=== PATIENT | female | born 1950 | race Two or more races ===

== ENCOUNTER 2017-11-07 16:23 | Emergency (ER) | payer MEDICAID ==
[~2017-11-07] VITALS: Ht 160 cm; Wt 80.0 kg
[~2017-11-07 16:23] MED LIST: AMLO2.5T2 PO; ASPI-1264 PO; DULO20CA50 PO; HYDR25TA4 PO; LISI40TA4 PO; METF500T PO; ONDA8TAB9 PO
[2017-11-07 16:28] VITALS: BP 153/75
== END 2017-11-07 18:47 | disposition home or self-care (01) ==
LOC: ER 16:23
DX: Z47.89 Encounter for other orthopedic aftercare (principal); I10 Essential (primary) hypertension; E11.9 Type 2 diabetes mellitus without complications; Z98.890 Other specified postprocedural states; Z88.8 Allergy status to other drugs, medicaments and biological substances; Z79.899 Other long term (current) drug therapy
CPT/HCPCS: 29515; 99283; A6449

== ENCOUNTER 2024-09-15 08:10 | Inpatient (IN) | payer MEDICARE, MEDICAID ==
[~2024-09-15] VITALS: Ht 157.5 cm; Wt 93.4 kg
[2024-09-15] VITALS (13 sets, daily range): BP systolic 92–141; BP diastolic 44–73; PULSE 54–80; RESP 12–20; TEMP 96.9–98.2; O2SAT 95–98
[~2024-09-15 08:10] MED LIST changes: +LISI40TA13 PO; -LISI40TA4 PO
[2024-09-15 08:59] LABS: BASOPHILS # (AUTO) 0.1 X10'3 (0-0.2); BASOPHILS % (AUTO) 0.4 % (0-1); EOSINOPHILS % (AUTO) 0.2 % (0-6); HEMOGLOBIN 10.3 g/dl (12.0-16.0); LYMPHOCYTES # (AUTO) 0.9 X10'3 (1.1-4.8); LYMPHOCYTES % (AUTO) 7.2 % (21-51); MEAN CORPUSCULAR HEMOGLOBIN 32.1 PG (27.0-31.0); MEAN CORPUSCULAR HGB CONC 33.2 g/dL (33.0-36.5); MEAN CORPUSCULAR VOLUME 96.7 FL (78-98); MEAN PLATELET VOLUME 7.7 FL (7.4-10.4); MONOCYTES # (AUTO) 1.1 X10'3 (0-0.9); NEUTROPHILS # (AUTO) 10.3 X10'3 (1.8-7.7); NEUTROPHILS % (AUTO) 83.2 % (42-75); PLATELET COUNT 220 X10'3 (140-440); RED CELL DISTRIBUTION WIDTH 14.8 % (11.5-14.5); WHITE BLOOD COUNT 12.4 X10'3 (4.5-11.0)
[2024-09-15] MEDS: NORepinephrine 8mg/ 250ml NS 250 ML IV SCH (09:02)
[2024-09-15 09:18] LABS: APTT 32 SECONDS (22-32); INR 1.1 INR; PROTHROMBIN TIME 11.4 SECONDS (9.0-12.0)
[2024-09-15 09:19] LABS: ALANINE AMINOTRANSFERASE 32 U/L (12-78); ALBUMIN/GLOBULIN RATIO 0.9 (1.1-1.5); ALKALINE PHOSPHATASE 154 IU/L (46-116); ANION GAP 12 (8-16); ASPARTATE AMINO TRANSFERASE 29 U/L (10-37); BILIRUBIN,TOTAL 0.4 MG/DL (0.1-1.0); BLOOD UREA NITROGEN 64 MG/DL (7-18); BUN/CREATININE RATIO 12.8 (10.0-20.0); CALCIUM 8.2 MG/DL (8.5-10.1); CHLORIDE 96 MMOL/L (99-107); GLUCOSE 177 MG/DL (70-104); MAGNESIUM 2.1 MG/DL (1.5-2.4); POTASSIUM 5.7 MMOL/L (3.5-5.1); SODIUM 129 MMOL/L (135-145); TOTAL CARBON DIOXIDE 20.7 MMOL/L (24-32); TOTAL PROTEIN 6.5 G/DL (6.4-8.2); eCRCL 8 ML/MIN; eGFR 9 ML/MIN
[2024-09-15] MEDS: HYDROmorphone 1 mg/ml syringe IV ONE (09:53)
[2024-09-15] MEDS: sodium bicarbonate (8.4%) 1 mEq/ml syringe IV ONE (10:15)
[2024-09-15] MEDS: dextrose 50%-water 50ml dispensing syringe IV ONE (10:15)
[2024-09-15] MEDS: insulin regular, human 10 units/0.1 ml syringe IV ONE (10:19)
[2024-09-15] MEDS ORDERED: ondansetron/PF 4mg/2ml inj IV PRN (10:30)
[2024-09-15] MEDS ORDERED: potassium Cl 40MEQ/1/2NS 520ml 520 ML IV PRN (10:30)
[2024-09-15] MEDS ORDERED: mag hydrox/Alum hydrox/simeth 30ml oral suspension PO PRN (10:30)
[2024-09-15] MEDS ORDERED: magnesium hydroxide 30ml (MOM) UD suspension PO PRN (10:30)
[2024-09-15] MEDS ORDERED: magnesium sulf-water 2g/50mL 50 ML IV PRN (10:30)
[2024-09-15] MEDS ORDERED: magnesium Cl slow-release 64mg tablet PO PRN (10:30)
[2024-09-15] MEDS ORDERED: potassium Cl 20 mEq SR tablet PO PRN ×2 (10:30)
[2024-09-15] MEDS ORDERED: acetaminophen 325mg tablet PO PRN ×2 (10:30)
[2024-09-15] MEDS ORDERED: magnesium sulf-water 4G/100mL 100 ML IV PRN (10:30)
[2024-09-15] MEDS ORDERED: DILT180C66 PO (11:08)
[2024-09-15] MEDS ORDERED: HYDR-3965 PO (11:08)
[2024-09-15] MEDS ORDERED: GABA-530 PO ×2 (11:08)
[2024-09-15] MEDS ORDERED: FOLI0.4T6 PO (11:08)
[2024-09-15] MEDS ORDERED: THIA50TA10 PO (11:08)
[2024-09-15] MEDS ORDERED: DOCU-348 PO (11:08)
[2024-09-15] MEDS ORDERED: CARV-50 PO (11:08)
[2024-09-15] MEDS ORDERED: CYCL-394 PO (11:08)
[2024-09-15] MEDS ORDERED: APIX2.5T PO (11:08)
[2024-09-15] MEDS ORDERED: ASCO-482 PO (11:08)
[2024-09-15] MEDS ORDERED: DOXA1TAB2 PO (11:08)
[2024-09-15] MEDS ORDERED: ATOR20TA PO (11:08)
[2024-09-15] MEDS ORDERED: FURO-150 PO (11:31)
[2024-09-15] MEDS: albumin (human) 25% 100ml IV 100 ML IV PRN (14:09)
[2024-09-15] MEDS: EPOETIN ALFA-EPBX 20,000 UNIT/ML 1 ML MDV IV ONE (14:42)
[2024-09-15] MEDS: heparin 1,000 units/ml 10ml inj IV ONE (14:46)
[2024-09-15] MEDS: heparin 1,000unit/ml 10ml vial 10 ML IV ONE (14:47)
[2024-09-15] MEDS: NUT.TX.IMP.RENAL FXN,LAC-REDUC (Nepro) 237 ML VANILLA PO SCH (18:35)
[2024-09-15] MEDS: docusate sod 100mg capsule PO SCH ×2 (20:00→21:00)
[2024-09-15] MEDS: K and/or MAG REPLACEMENT MC SCH (20:00)
[2024-09-15] MEDS: heparin, porcine 5000 units/ml vial SQ SCH (20:03)
[2024-09-15] MEDS ORDERED: dextrose 50%-water 50ml dispensing syringe IV PRN ×2 (20:20)
[2024-09-15] MEDS ORDERED: glucagon, human recombinant 1mg kit SUBCUT PRN (20:20)
[2024-09-15] MEDS ORDERED: DEXTROSE 15 GM of carb/4 tabs (each vial/BOTTLE has 4 tablets) PO PRN ×2 (20:20)
[2024-09-15] MEDS ORDERED: cyclobenzaprine 10mg tablet PO PRN (20:30)
[2024-09-15] MEDS: INSULIN LISPRO 100 UNIT/ML INSULN.PEN MULTI-DOSE SQ SCH (21:00)
[2024-09-15] MEDS: insulin glargine (Lantus) pen - multi-dose SQ SCH (21:00)
[2024-09-15] MEDS ORDERED: insulin glargine (Lantus) pen - multi-dose SQ SCH (21:00)
[2024-09-15] MEDS: HYDROcodone/acetaminophen 5mg/325mg tablet PO PRN (21:11)
[2024-09-15] MEDS: atorvastatin 20mg tablet PO SCH (23:24)
[2024-09-16] VITALS (8 sets, daily range): BP systolic 122–163; BP diastolic 40–67; PULSE 69–79; RESP 15–20; TEMP 97.4–98.4; O2SAT 96–99
[2024-09-16 01:30] LABS: BILIRUBIN,URINE NEGATIVE (Neg); CLARITY,URINE CLEAR (Clear); COLOR,URINE YELLOW (Yellow); GLUCOSE, URINE 100 mg/dl (Neg); KETONES,URINE NEGATIVE (Neg); LEUKOCYTE ESTERASE ,URINE NEGATIVE (Neg); NITRITES, URINE NEGATIVE (Neg); OCCULT BLOOD,URINE TRACE-INTACT (Neg); PROTEIN,URINE >=300 mg/dl (Neg); UROBILINOGEN,URINE 0.2 E.U/dL (0.2-1.0)
[2024-09-16 01:31] LABS: UA COLLECTION TYPE FOLEY CATH
[2024-09-16 01:37] LABS: BACTERIA,URINE FEW /HPF (Neg); SQUAMOUS EPITHELIAL CELL,UR NONE SEEN /LPF (FEW)
[2024-09-16 01:38] LABS: RBC,URINE 0-2 /HPF (0-2); WBC,URINE 0-4 /HPF (0-4)
[2024-09-16 06:44] LABS: BASOPHILS # (AUTO) 0.1 X10'3 (0-0.2); BASOPHILS % (AUTO) 0.7 % (0-1); EOSINOPHILS # (AUTO) 0.2 X10'3 (0-0.9); EOSINOPHILS % (AUTO) 2.6 % (0-6); HEMATOCRIT 30.6 % (35.0-45.0); HEMOGLOBIN 10.2 g/dl (12.0-16.0); LYMPHOCYTES # (AUTO) 0.9 X10'3 (1.1-4.8); LYMPHOCYTES % (AUTO) 12.2 % (21-51); MEAN CORPUSCULAR HEMOGLOBIN 32.1 PG (27.0-31.0); MEAN CORPUSCULAR HGB CONC 33.3 g/dL (33.0-36.5); MEAN CORPUSCULAR VOLUME 96.3 FL (78-98); MEAN PLATELET VOLUME 7.9 FL (7.4-10.4); MONOCYTES # (AUTO) 0.9 X10'3 (0-0.9); NEUTROPHILS # (AUTO) 5.4 X10'3 (1.8-7.7); NEUTROPHILS % (AUTO) 72.5 % (42-75); PLATELET COUNT 189 X10'3 (140-440); RED BLOOD COUNT 3.18 X10'6 (4.20-5.60); RED CELL DISTRIBUTION WIDTH 14.6 % (11.5-14.5); WHITE BLOOD COUNT 7.4 X10'3 (4.5-11.0)
[2024-09-16 06:59] LABS: ALANINE AMINOTRANSFERASE 27 U/L (12-78); ALBUMIN 3.3 G/DL (3.4-5.0); ALBUMIN/GLOBULIN RATIO 0.9 (1.1-1.5); ALKALINE PHOSPHATASE 133 IU/L (46-116); ANION GAP 8 (8-16); ASPARTATE AMINO TRANSFERASE 21 U/L (10-37); BILIRUBIN,TOTAL 0.4 MG/DL (0.1-1.0); BLOOD UREA NITROGEN 40 MG/DL (7-18); BUN/CREATININE RATIO 10.9 (10.0-20.0); CALCIUM 8.2 MG/DL (8.5-10.1); CHLORIDE 101 MMOL/L (99-107); CHOL/HDL RATIO 1.8 (0.00-4.99); CHOLESTEROL 99 MG/DL (0-200); CREATININE 3.66 MG/DL (0.40-0.90); GLUCOSE 93 MG/DL (70-104); HDL CHOLESTEROL 54 MG/DL (35-60); LDL CHOLESTEROL 37 MG/DL (50-100); MAGNESIUM 2.1 MG/DL (1.5-2.4); POTASSIUM 5.1 MMOL/L (3.5-5.1); SODIUM 135 MMOL/L (135-145); TOTAL CARBON DIOXIDE 25.9 MMOL/L (24-32); TOTAL PROTEIN 6.8 G/DL (6.4-8.2); TRIGLYCERIDES 87 MG/DL (20-135); eCRCL 11 ML/MIN; eGFR 12 ML/MIN
[2024-09-16 07:37] LABS: HEMOGLOBIN A1C 6.6 % (4.5-6.2)
[2024-09-16] MEDS: gabapentin 100mg capsule PO SCH (08:13)
[2024-09-16] MEDS: apixaban 5mg tablet PO SCH (08:13)
[2024-09-16] MEDS: folic acid 1mg tablet PO SCH (08:13)
[2024-09-17] VITALS (11 sets, daily range): BP systolic 130–164; BP diastolic 54–75; PULSE 73–83; RESP 16–20; TEMP 97.4–98.7; O2SAT 95–99
[2024-09-17] MEDS ORDERED: albumin (human) 25% 100ml IV 100 ML IV PRN (05:50)
[2024-09-17 06:20] LABS: BASOPHILS # (AUTO) 0.1 X10'3 (0-0.2); BASOPHILS % (AUTO) 0.6 % (0-1); EOSINOPHILS # (AUTO) 0.3 X10'3 (0-0.9); EOSINOPHILS % (AUTO) 3.2 % (0-6); HEMATOCRIT 33.6 % (35.0-45.0); HEMOGLOBIN 11.1 g/dl (12.0-16.0); LYMPHOCYTES # (AUTO) 1.2 X10'3 (1.1-4.8); LYMPHOCYTES % (AUTO) 12.9 % (21-51); MEAN CORPUSCULAR HEMOGLOBIN 31.7 PG (27.0-31.0); MEAN CORPUSCULAR HGB CONC 33.1 g/dL (33.0-36.5); MEAN CORPUSCULAR VOLUME 95.9 FL (78-98); MEAN PLATELET VOLUME 7.7 FL (7.4-10.4); MONOCYTES # (AUTO) 1.4 X10'3 (0-0.9); MONOCYTES % (AUTO) 15.2 % (2-12); NEUTROPHILS # (AUTO) 6.5 X10'3 (1.8-7.7); NEUTROPHILS % (AUTO) 68.1 % (42-75); PLATELET COUNT 213 X10'3 (140-440); RED CELL DISTRIBUTION WIDTH 14.8 % (11.5-14.5); WHITE BLOOD COUNT 9.5 X10'3 (4.5-11.0)
[2024-09-17 06:36] LABS: ALANINE AMINOTRANSFERASE 29 U/L (12-78); ALBUMIN 3.4 G/DL (3.4-5.0); ALBUMIN/GLOBULIN RATIO 0.9 (1.1-1.5); ALKALINE PHOSPHATASE 139 IU/L (46-116); ANION GAP 9 (8-16); ASPARTATE AMINO TRANSFERASE 21 U/L (10-37); BILIRUBIN,TOTAL 0.4 MG/DL (0.1-1.0); BLOOD UREA NITROGEN 48 MG/DL (7-18); BUN/CREATININE RATIO 10.8 (10.0-20.0); CALCIUM 7.9 MG/DL (8.5-10.1); CHLORIDE 99 MMOL/L (99-107); CREATININE 4.44 MG/DL (0.40-0.90); GLUCOSE 90 MG/DL (70-104); POTASSIUM 4.8 MMOL/L (3.5-5.1); SODIUM 133 MMOL/L (135-145); TOTAL CARBON DIOXIDE 24.6 MMOL/L (24-32); TOTAL PROTEIN 7.3 G/DL (6.4-8.2); eCRCL 9 ML/MIN; eGFR 10 ML/MIN
[2024-09-17] MEDS ORDERED: NIFEdipine XL 30mg tablet PO ONE (08:10)
[2024-09-17] MEDS ORDERED: APIX5TAB3 PO (08:19)
[2024-09-17] MEDS ORDERED: CARCD120C PO (08:19)
[2024-09-17] MEDS ORDERED: diltiazem CD 120mg capsule (once-daily) PO ONE (08:20)
[2024-09-17] MEDS: heparin 1,000unit/ml 10ml vial 10 ML IV ONE (10:02)
[2024-09-17] MEDS: heparin 1,000 units/ml 10ml inj IV ONE (10:02)
[2024-09-17] MEDS: EPOETIN ALFA-EPBX 20,000 UNIT/ML 1 ML MDV IV ONE (10:30)
[2024-09-17 11:46] LABS: HBSAG SCREEN Negative (Negative)
[2024-09-17 13:12] LABS: HEP B SURF AB Reactive (.)
[2024-09-18] MEDS ORDERED: diltiazem CD 120mg capsule (once-daily) PO SCH (08:00)
[2024-09-18] MEDS ORDERED: NIFEdipine XL 30mg tablet PO SCH (08:00)
== END 2024-09-17 14:00 | disposition home health service (06) | DRG 682 ==
LOC: ER 08:11 → ED HOLD 10:31 → PCU 3S 13:18
PROVIDERS: ADMIT Nurse Practitioner Family; ATTEND Nurse Practitioner Family
PROC: 5A1D70Z Performance of Urinary Filtration, Intermittent, Less than 6 Hours Per Day (ICD-10-PCS; principal; 2024-09-15)
PROC: 5A1D70Z Performance of Urinary Filtration, Intermittent, Less than 6 Hours Per Day (ICD-10-PCS; 2024-09-17)
DX: I12.0 Hypertensive chronic kidney disease with stage 5 chronic kidney disease or end stage renal disease (principal); N18.6 End stage renal disease; N39.0 Urinary tract infection, site not specified; E87.1 Hypo-osmolality and hyponatremia; E87.70 Fluid overload, unspecified; E87.5 Hyperkalemia; E11.22 Type 2 diabetes mellitus with diabetic chronic kidney disease; I48.91 Unspecified atrial fibrillation; D64.9 Anemia, unspecified; I95.9 Hypotension, unspecified; Z99.2 Dependence on renal dialysis; Z79.82 Long term (current) use of aspirin; Z79.899 Other long term (current) drug therapy; Z79.84 Long term (current) use of oral hypoglycemic drugs; Z88.8 Allergy status to other drugs, medicaments and biological substances; Z84.1 Family history of disorders of kidney and ureter; Z86.73 Personal history of transient ischemic attack (TIA), and cerebral infarction without residual deficits; Z87.891 Personal history of nicotine dependence; Z91.158 Patient's noncompliance with renal dialysis for other reason; T50.995A Adverse effect of other drugs, medicaments and biological substances, initial encounter; Y92.9 Unspecified place or not applicable; R00.1 Bradycardia, unspecified
CPT/HCPCS: 36415; 71045; 80053; 80061; 81001; 82948; 83036; 83735; 84145; 84466; 85025; 85610; 85730; 86706; 87340; 93005; 97161; 97530; 97535; 99291; A6212; A6449; C1751; E1594; G0257; G0378; J1171; J1644; J1815; J3490; J7030; P9047; Q4081